=== PATIENT | male | born 1950 | race Hispanic/Latino ===

== ENCOUNTER 2017-06-25 16:37 | Emergency (ER) | payer MEDICARE, OTHER ==
[2017-06-25 16:43] VITALS: BP 174/92; PULSE 72; RESP 18; TEMP 98.1; O2SAT 95; BMI 32.6
[2017-06-25] MEDS ORDERED: Lidocaine 1% Inj (20ml) ONE (17:01)
--- NOTE | 2017-06-25 17:04 | ED PDOC ---
Arrival/HPI - General Chief Complaint: Finger,Hand,&Wrist Time Seen by Provider: 06/25/17 16:43 Historian: Patient - History of Present Illness Narrative History of Present Illness (Text): 06/25/17 17:00 66yo male with PMhx of hypertension and Hyperlipdemia who present with 5days history of right finger pain and swelling. He reports throbbing pain to the finger. States he has been soaking it in a warm water. He denies fever,chills, any other complaint. Past Medical History - Provider Review Nursing Documentation Reviewed: Yes - Cardiac Hx Hypertension: Yes - Pulmonary Hx Respiratory Disorders: No - Neurological Hx Neurological Disorder: No - HEENT Hx HEENT Disorder: No - Renal Hx Renal Disorder: No - Endocrine/Metabolic Hx Endocrine Disorders: No - Hematological/Oncological Hx Blood Disorders: No - Integumentary Hx Dermatological Disorder: No - Musculoskeletal/Rheumatological Hx Musculoskeletal Disorders: No - Gastrointestinal Hx Gastrointestinal Disorders: No - Genitourinary/Gynecological Hx Genitourinary Disorders: No - Psychiatric Hx Psychophysiologic Disorder: No Hx Substance Use: No Family/Social History - Physician Review Nursing Documentation Reviewed: Yes Family/Social History: Unknown Family HX Smoking Status: Light Smoker < 10 Cigarettes Daily Hx Alcohol Use: No Hx Substance Use: No Allergies/Home Meds Allergies/Adverse Reactions: Allergies No Known Allergies Allergy (Verified 06/25/17 16:50) Home Medications: Home Meds Medication Instructions Recorded Confirmed Diltiazem HCl [Cardizem LA] 360 mg PO DAILY 06/25/17 06/25/17 hydroCHLOROthiazide [Microzide] 12.5 mg PO DAILY 06/25/17 06/25/17 Review of Systems - Physician Review All systems were reviewed & negative as marked: Yes - Review of Systems Constitutional: Normal Eyes: Normal ENT: Normal Respiratory: Normal Cardiovascular: Normal Gastrointestinal: Normal Genitourinary Male: Normal Musculoskeletal: Normal Skin: Abscess (Right 3rd finger) Neurological: Normal Endocrine: Normal Hemo/Lymphatic: Normal Psychiatric: Normal Physical Exam Vital Signs Reviewed: Yes Vital Signs Temp Pulse Resp BP Pulse Ox 06/25/17 16:43 98.1 F 72 18 174/92 H 95 Temperature: Afebrile Blood Pressure: Normal Pulse: Regular Respiratory Rate: Normal Appearance: Positive for: Well-Appearing, Non-Toxic, Comfortable Pain Distress: None Mental Status: Positive for: Alert and Oriented X 3 - Systems Exam Head: Present: Atraumatic, Normocephalic Pupils: Present: PERRL Extroacular Muscles: Present: EOMI Conjunctiva: Present: Normal Mouth: Present: Moist Mucous Membranes Neck: Present: Normal Range of Motion Respiratory/Chest: Present: Clear to Auscultation, Good Air Exchange. No: Respiratory Distress, Accessory Muscle Use Cardiovascular: Present: Regular Rate and Rhythm, Normal S1, S2. No: Murmurs Abdomen: No: Tenderness, Distention, Peritoneal Signs Back: Present: Normal Inspection Upper Extremity: Present: Normal Inspection. No: Cyanosis, Edema Lower Extremity: Present: Normal Inspection. No: Edema Neurological: Present: GCS=15, CN II-XII Intact, Speech Normal Skin: Present: Warm, Dry, Normal Color, Abscess (Abscess noted surrounding the right 3rd finger nail base. ). No: Rashes Psychiatric: Present: Alert, Oriented x 3, Normal Insight, Normal Concentration Medical Decision Making ED Course and Treatment: 06/25/17 17:28 Pt in ED for stated history. Pus was drained in ED. Pt declined TD booster. Pt was DC home with keflex. Referred to his PMD. - Medication Orders Current Medication Orders: Discontinued Medications Cephalexin Monohydrate (Keflex) 500 mg PO STAT STA PRN Reason: Protocol Stop: 06/25/17 17:00 Last Admin: 06/25/17 17:14 Dose: 500 mg Tramadol HCl (Ultram) 50 mg PO STAT STA Stop: 06/25/17 17:00 Last Admin: 06/25/17 17:15 Dose: 50 mg MAR Pain Assessment Document 06/25/17 17:15 GMI (Rec: 06/25/17 17:16 GMI [id number]) Pain Reassessment Is this a pain reassessment? Yes Sleep Is patient sleeping during reassessment? No Presence of Pain Presence of Pain Yes Pain Scale Used Pain Scale Used Numeric Location Left, Right or Bilateral Right Pain Location Body Site Middle Finger Description Description Throbbing Pain Behavior Facial Grimacing Alleviating Factors/Management Distraction Techniques Alleviating Factors Medication Disposition/Present on Arrival - Present on Arrival Any Indicators Present on Arrival: No History of DVT/PE: No History of Uncontrolled Diabetes: No Urinary Catheter: No History of Decub. Ulcer: No History Surgical Site Infection Following: None - Disposition Have Diagnosis and Disposition been Completed?: Yes Diagnosis: Paronychia Disposition: HOME/ ROUTINE Disposition Time: 17:15 Patient Plan: Discharge Patient Problems: Current Active Problems Problem Status Onset Paronychia Acute Condition: STABLE Discharge Instructions (ExitCare): Paronychia (DC) Additional Instructions: Keep area clean and dry Follow up with your Doctor Return to ED for any new or worsening symptoms Prescriptions: Cephalexin [Keflex] 500 mg PO QID #28 capsule Referrals: Rupert Doan MD [Primary Care Provider] - Follow up with primary Forms: [employer] (Chinese) - Incision & Drainage Of Abscess Anesthesia: Lidocaine 1% (5) Procedure: Incised W/Scalpel Blade#: (11), Drained Pus
== END 2017-06-25 17:32 | disposition home or self-care (01) ==
LOC: ED 16:37
DX: L03.011 Cellulitis of right finger (principal); I10 Essential (primary) hypertension; E78.5 Hyperlipidemia, unspecified; F17.210 Nicotine dependence, cigarettes, uncomplicated